=== PATIENT | female | born 1985 | race Caucasian/White ===

== ENCOUNTER → 2017-05-21 | Outpatient (CLI) | payer OTHER ==
[~2017-05-21] MED LIST: ASCO250C17 PO; DPPI400
--- NOTE | 2017-05-25 07:48 | MAMMOGRAPHY REPORT ---
BILATERAL DIGITAL SCREENING MAMMOGRAM TOMOSYNTHESIS WITH CAD: 05/21/2017 CLINICAL HISTORY: Routine screening. Patient has no complaints. TECHNIQUE: Breast tomosynthesis in addition to standard 2D mammography was performed. Current study was also evaluated with a Computer Aided Detection (CAD) system. COMPARISON: Comparison is made to exam dated: 07/24/2014 mammogram - [facility]. BREAST COMPOSITION: There are scattered areas of fibroglandular density in both breasts. FINDINGS: There is a small cluster of calcifications within the left lower outer quadrant, for which spot magnification views are recommended for further evaluation. The remainder of both breasts are stable compared to the prior exam, without suspicious masses, calci fications, or areas of architectural distortion noted. Other scattered bilateral benign-appearing ca lcifications are not significantly changed when accounting for differences in mammographic technique between the current and prior exam. IMPRESSION: ACR BI-RADS CATEGORY 0: INCOMPLETE EVALUATION: NEED ADDITIONAL IMAGING EVALUATION Left breast calcifications, for which additional imaging evaluation is recommended. The patient will be called to schedule an appointment. Approximately 10% of breast cancers are not detected with mammography. A negative mammographic report should not delay biopsy if a clinically suggestive mass is present. Iris Holm M.D. ah/:05/22/2017 15:59:09 Office Services Coordinator: Rose LEON)(Tracey), [facility] letter sent: Addl Imaging 0 BI-RADS Code: ACR BI-RADS Category 0: Incomplete Evaluation: Need Additional Imaging Evaluation
== END | disposition home or self-care (01) ==
LOC: C.MAMM 13:52
PROVIDERS: ATTEND Obstetrics & Gynecology
DX: Z12.31 Encounter for screening mammogram for malignant neoplasm of breast (principal); R92.1 Mammographic calcification found on diagnostic imaging of breast

== ENCOUNTER → 2017-06-03 | Outpatient (CLI) | payer OTHER ==
--- NOTE | 2017-06-04 14:35 | MAMMOGRAPHY REPORT ---
UNILATERAL LEFT DIGITAL DIAGNOSTIC MAMMOGRAM: 06/03/2017 CLINICAL HISTORY: Callback from screening mammogram for left breast calcifications. TECHNIQUE: Spot magnification left CC and ML views were obtained. COMPARISON: Comparison is made to exams dated: 05/21/2017 mammogram and 07/24/2014 mammogram - [facility]. BREAST COMPOSITION: There are scattered areas of fibroglandular density in the left breast. FINDINGS: Spot magnification views of the left breast demonstrate at least 3-4 clusters of calcifica tions within the left breast, one in the left upper inner quadrant measuring approximately 7 mm. Thi s cluster demonstrates layering on the lateral view, consistent with milk of calcium. Another small 4 mm cluster of calcifications is seen within the left inferior anterior breast on the ML view; some of the calcifications within this cluster also demonstrate layering, suggestive of milk of calcium. A small 2 mm cluster of predominantly punctate benign-appearing calcifications is seen within the lef t lower outer quadrant, and another similar appearing 1 mm cluster of punctate calcifications is seen within the left inferior breast. The calcifications are probably benign and likely represent milk o f calcium/fibrocystic changes. IMPRESSION: ACR-BI-RADS CATEGORY 3: PROBABLY BENIGN Multiple clusters of benign-appearing calcifications within the left breast, some of which demonstrat e layering on the lateral view consistent with benign milk of calcium. The calcifications are probab ly benign and likely represent milk of calcium/fibrocystic changes. Recommend follow-up diagnostic t omosynthesis mammograms of the left breast in 6 months to confirm stability on spot magnification vie ws. The patient has been verbally notified of the results. Approximately 10% of breast cancers are not detected with mammography. A negative mammographic report should not delay biopsy if a clinically suggestive mass is present. Iris Holm M.D. ah/:06/03/2017 14:36:12 Margin Trimmer: Lillian ORTEGA(Eli)(M), [facility] letter sent: Follow Up Recommended 3 BI-RADS Code: ACR-BI-RADS Category 3: Probably Benign
== END | disposition home or self-care (01) ==
LOC: C.MAMM 12:58
PROVIDERS: ATTEND Obstetrics & Gynecology
DX: R92.0 Mammographic microcalcification found on diagnostic imaging of breast (principal)